=== PATIENT | female | born 1955 | race Caucasian/White ===

== ENCOUNTER → 2017-06-12 | Outpatient (CLI) | payer BC ==
[2016-09-19 15:00] VITALS: BP 126/67
[~2017-06-12] MED LIST: ASPI-482 PO; CALC1TAB75 PO; CHOL500045 PO; ENAL20TA PO; ESOM40CA25 PO; ESTR0.5T PO; ESZO3TAB28 PO; GABA600T2 PO; HYDR-2758 PO; MORP100T30 PO; MULT-246 PO; NORT25CA PO; SERT50TA8 PO; SIMV20TA3 PO; SOLI10TA2 PO
--- NOTE | 2017-06-12 15:30 | CARD ---
APPROVED REPORT EXAM: Two-dimensional and M-mode echocardiogram with Doppler and color Doppler. Other Information Quality : GoodHR: 74bpm Rhythm : NSR INDICATION Murmur RISK FACTORS Hypertension Obesity 2D DIMENSIONS RVDd3.1 (2.9-3.5cm)Left Atrium(2D)3.1 (1.6-4.0cm) IVSd1.2 (0.7-1.1cm)Aortic Root(2D)3.0 (2.0-3.7cm) LVDd4.6 (3.9-5.9cm)PWd1.2 (0.7-1.1cm) LVDs3.2 (2.5-4.0cm)FS (%) 30.7 % SV57.9 mlLVEF(%)58.3 (>50%) Aortic Valve AoV Peak Boub[place]ar.165.5cm/sAoV VTI35.8cm AO Peak GR.11.0mmHgLVOT Peak Boub[place]ar.108.2cm/s AO Mean GR.5mmHg Mitral Valve MV E Tmkssxtl81.9cm/sMV E Peak Gr.4mmHg MV DECEL [id number] A Torytuui909.8cm/s MV E Mean Gr.1mmHgE/A Ratio0.9 MV A [id number] Pulmonary Valve PV Peak Xgmgbmdy052.2cm/s Pulmonary Vein S1 Gnkocgai07.1cm/sD2 Vaafcgyd42.5cm/s PVa [id number] LEFT VENTRICLE The left ventricle is normal size. There is mild concentric left ventricular hypertrophy. The left ve ntricular systolic function is normal The Ejection Fraction is 60-65%. There is normal LV segmental w all motion. Transmitral Doppler flow pattern is Grade I-abnormal relaxation pattern. RIGHT VENTRICLE The right ventricle is normal size. There is normal right ventricular wall thickness. The right ventr icular systolic function is normal. ATRIA The left atrium size is normal. The right atrium size is normal. The interatrial septum is intact wit h no evidence for an atrial septal defect or patent foramen ovale as noted on 2-D or Doppler imaging. AORTIC VALVE The aortic valve is mildly sclerotic. The aortic valve is trileaflet. Doppler and Color Flow revealed no significant aortic regurgitation. There is no significant aortic valvular stenosis. MITRAL VALVE Mitral annular calcification is mild. The mitral valve leaflets are thickened. There is no evidence o f mitral valve prolapse. There is no mitral valve stenosis. Doppler and Color Flow revealed no mitral valve regurgitation noted. TRICUSPID VALVE Doppler and Color Flow revealed trace tricuspid valve regurgitation. PULMONIC VALVE The pulmonary valve is not well visualized but appears to opens well. Doppler and Color Flow revealed pulmonic valvular regurgitation. There is no pulmonic valvular stenosis by spectral Doppler. GREAT VESSELS The aortic root is normal in size. The ascending aorta is normal in size. The pulmonary artery is nor mal. The IVC is normal in size and collapses >50% with inspiration. PERICARDIAL EFFUSION There is no evidence of significant pericardial effusion. Critical Notification Critical Value: No <Conclusion> The left ventricular systolic function is normal The Ejection Fraction is 60-65%. There is normal LV segmental wall motion. Transmitral Doppler flow pattern is Grade I-abnormal relaxation pattern. Doppler and Color Flow revealed trace tricuspid valve regurgitation. There is no evidence of significant pericardial effusion.
== END | disposition home or self-care (01) ==
LOC: ECHO 13:39
PROVIDERS: ATTEND Internal Medicine Cardiovascular Disease
DX: I07.1 Rheumatic tricuspid insufficiency (principal)
CPT/HCPCS: 93306

== ENCOUNTER → 2018-03-31 | Outpatient (CLI) | payer BC | END | disposition home or self-care (01) | LOC: PNCL 09:24 | DX: M54.5 Low back pain (principal); M79.604 Pain in right leg; M79.605 Pain in left leg; I10 Essential (primary) hypertension; Z96.653 Presence of artificial knee joint, bilateral | CPT/HCPCS: G0463 ==